=== PATIENT | female | born 1950 | race Caucasian/White ===

== ENCOUNTER 2016-12-31 18:51 | Emergency (ER) | payer OTHER ==
[~2016-12-31] VITALS: Ht 162.6 cm; Wt 63.6 kg
[2016-12-31 19:02] VITALS: Ht 162.6 cm; Wt 63.6 kg
--- NOTE | 2016-12-31 22:17 | ERD ---
ER Documentation Chief Complaint Chief Complaint Abd pain, N/V, x 3 days. HPI The patient is a 66-year-old female, presenting to the ER because of epigastric abdominal pain for the last 3 days, has similar symptoms previously, complains of nausea without vomiting. The pain is worse after eating, she denies fever, chest pain, dyspnea, diarrhea, constipation, dysuria. She was seen at [place] 2 days ago. She does not smoke nor drink Past medical history cholelithiasis Past surgical history: None ROS All systems reviewed and are negative except as per history of present illness. Medications Home Meds Active Scripts Hydrocodone/Acetaminophen ([place] 5-325 Tablet) 1 Each Tablet, 1 TAB PO Q6H Y for PAIN, #7 TAB Prov:ROXI GALEANA MD 01/01/17 Physical Exam Vitals Vital Signs Date Time Temp Pulse Resp B/P Pulse Ox O2 Delivery O2 Flow Rate FiO2 12/31/16 22:25 98.9 69 20 146/74 99 Room Air 12/31/16 19:02 99.0 66 20 146/74 99 Physical Exam Const: No acute distress. Head: Atraumatic. Eyes: Normal Conjunctiva. ENT: Normal External Ears, Nose and Mouth. Neck: Full range of motion. No meningismus. Resp: Clear to auscultation bilaterally. Cardio: Regular rate and rhythm. Abd: Soft, non distended, normal bowel sounds, Mild epigastric tenderness, no right lower quadrant, right upper quadrant, rigidity, rebound or CVA tenderness Skin: No petechiae or rashes. Back: No midline or flank tenderness. Ext: No cyanosis, or edema. Neur: Awake and alert. No focal deficit Psych: Normal Mood and Affect. Result Diagram: 12/31/16224912/31/162249 Results 24 hrs Laboratory Tests Test 12/31/16 22:50 12/31/16 23:05 White Blood Count 10.110^3/ul Red Blood Count 4.5410^6/ul Hemoglobin 13.3g/dl Hematocrit 39.9% Mean Corpuscular Volume 87.9fl Mean Corpuscular Hemoglobin 29.3pg Mean Corpuscular Hemoglobin Concent 33.3g/dl Red Cell Distribution Width 12.9% Platelet Count 38282^3/UL Mean Platelet Volume 9.4fl Neutrophils % 84.8% Lymphocytes % 11.8% Monocytes % 2.7% Eosinophils % 0.0% Basophils % 0.1% Nucleated Red Blood Cells % 0.0/100WBC Neutrophils # 8.510^3/ul Lymphocytes # 1.210^3/ul Monocytes # 0.310^3/ul Eosinophils # 0.010^3/ul Basophils # 0.010^3/ul Nucleated Red Blood Cells # 0.010^3/ul Sodium Level 137mmol/L Potassium Level 3.3mmol/L Chloride Level 98mmol/L Carbon Dioxide Level 26mmol/L Anion Gap 16 Blood Urea Nitrogen 13mg/dl Creatinine 0.60mg/dl Glucose Level 126mg/dl Calcium Level 8.7mg/dl Total Bilirubin 0.4mg/dl Direct Bilirubin 0.00mg/dl Indirect Bilirubin 0.4mg/dl Aspartate Amino Transf (AST/SGOT) 25IU/L Alanine Aminotransferase (ALT/SGPT) 35IU/L Alkaline Phosphatase 117IU/L Total Protein 8.0g/dl Albumin 4.7g/dl Globulin 3.30g/dl Albumin/Globulin Ratio 1.42 Lipase 37U/L Bedside Urine pH (LAB) 7.0 Bedside Urine Protein (LAB) 1+ Bedside Urine Glucose (UA) Negative Bedside Urine Ketones (LAB) 3+ Bedside Urine Blood 2+ Bedside Urine Nitrite (LAB) Negative Bedside Urine Leukocyte Esterase (L Trace Current Medications Medications (Trade) Dose Ordered Sig/Conor Route PRN Reason Start Time Stop Time Status Last Admin Dose Admin Morphine Sulfate (morphine) 2 mg ONCE ONCE IV 12/31/16 23:00 12/31/16 23:01 DC 12/31/16 22:52 Ondansetron HCl (Zofran Inj) 4 mg ONCE STAT IV 12/31/16 22:39 12/31/16 22:40 DC 12/31/16 22:52 Pantoprazole (Protonix Tab) 40 mg ONCE ONCE PO 12/31/16 23:00 12/31/16 23:01 DC 12/31/16 22:52 Potassium Chloride (Klor-Con 20) 20 meq ONCE STAT PO 01/01/17 00:33 01/01/17 00:34 DC Ketorolac Tromethamine (Toradol) 30 mg ONCE STAT IV 01/01/17 00:38 01/01/17 00:39 DC [facility] [place] [address] Radiology Main Line: [phone] DIAGNOSTIC IMAGING REPORT Patient: YAMILETH STACK : 1950 Age: 66 Sex: F MR #: [id number] [facility] #: [id number] DOS: 12/31/16 2252 Ordering MD: ROXI GALEANA MD Location: E/R Room/Bed: PROCEDURE: US Abdomen (right upper quadrant). CLINICAL INDICATION: Pain. TECHNIQUE: Multiple real-time longitudinal and transverse images of the right upper quadrant of the abdomen were acquired utilizing a curved array transducer. Images were reviewed on a high-resolution PACS workstation. COMPARISON: None FINDINGS: The liver is normal in size and echogencity without focal mass. Multiple gallstones are noted within the gallbladder measuring up to 2.4 cm in diameter.. There is no pericholecystic fluid or gallbladder wall thickening. No intra or extrahepatic biliary dilatation is seen. The common bile duct measures 4.6 mm in maximal dimension. Visualized pancreas is unremarkable.. No free fluid is identified. The right kidney measures 13.3 cm in length. Right kidney is normal in size and echogenicity without hydronephrosis, mass or calculus. There is no perinephric fluid collection. IMPRESSION: 1. Cholelithiasis. 2. No biliary ductal dilation or other signs of cholecystitis. rptat;hmvk .Roxi Youssef MD, MD Date Time Electronically viewed and signed by .Roxi Youssef MD, MD on 12/31/2016 23:45 .K/ CC: ROXI GALEANA EKG: Read by emergency physician Rate/Rhythm: Normal Sinus Rhythm 68 beats/min QRS, ST, T-waves: No ST elevation, no T inversion Impression: Normal EKG MEDICAL MAKING DECISION: The patient is a 66-year-old female, presenting with acute pericolic, acute hypokalemia. She was treated with morphine 2 mg IV and Toradol 30 mg IV for pain and Zofran 4 mg IV for nausea, Protonix 40 mg p.o. for epigastric abdominal pain and potassium chloride 20 mEq p.o. for acute hypokalemia with good response The differential diagnoses considered include but are not limited to cholelithiasis, cholecystitis, cystitis, pancreatitis, hepatitis, gastritis, peptic ulcer disease, gastric ulcer, appendicitis, diverticulitis, cholangitis, choledocholithiasis, partial small bowel obstruction. Departure Diagnosis: Primary Impression: Biliary colic Additional Impression: Hypokalemia Condition: Good Comments She was discharged with [place] The patient's blood pressure was elevated (>120/80) but appears stable without evidence of hypertension emergency or urgency. The patient was counseled about the risks of hypertension and urged to pursue outpatient monitoring and therapy within a week with their primary care physician. I discussed the findings with the patient. I advised the patient to follow-up with the primary physician in about 1-2 days for referral to general surgery or follow with Dr. Carrillo for further evaluation for cholecystectomy, sooner if needed and return if any concern. Disclaimer: Inadvertent spelling and grammatical errors are likely due to EHR/ dictation software use and do not reflect on the overall quality of patient care. Also, please note that the electronic time recorded on this note does not necessarily reflect the actual time of the patient encounter. ROXI GALEANA MD Dec 31, 2016 22:17
[2016-12-31 22:25] VITALS: BP 146/74; PULSE 69; RESP 20; TEMP 98.9
[2016-12-31] MEDS ORDERED: ONDANSETRON 4 MG INJ IV STA (22:39)
[2016-12-31] MEDS ORDERED: PANTOPRAZOLE (EC) 40 MG TAB PO ONE (23:00)
[2016-12-31] MEDS ORDERED: morphine 2 MG INJ IV ONE (23:00)
[2016-12-31 23:08] LABS: URINE BLOOD (Dip) POC 2+ (NEGATIVE)
[2016-12-31 23:18] LABS: BASOPHILS % 0.1 % (0.0-2.0); HEMATOCRIT 39.9 % (37.0-47.0); HEMOGLOBIN 13.3 g/dl (12.0-16.0); LYMPHOCYTES # 1.2 10^3/ul (0.8-2.9); LYMPHOCYTES % 11.8 % (15.0-51.0); MEAN CORPUSCULAR HEMOGLOBIN 29.3 pg (29.0-33.0); MEAN CORPUSCULAR HGB CONC 33.3 g/dl (32.0-37.0); MEAN CORPUSCULAR VOLUME 87.9 fl (82.0-101.0); MEAN PLATELET VOLUME 9.4 fl (7.4-10.4); MONOCYTE # 0.3 10^3/ul (0.3-0.9); MONOCYTES % 2.7 % (0.0-11.0); NEUTROPHIL # 8.5 10^3/ul (1.6-7.5); NEUTROPHILS % 84.8 % (39.0-77.0); PLATELET COUNT 300 10^3/UL (140-415); RED BLOOD COUNT 4.54 10^6/ul (4.20-5.40); RED CELL DISTRIBUTION WIDTH 12.9 % (11.5-14.5); WHITE BLOOD COUNT 10.1 10^3/ul (4.8-10.8)
[2016-12-31 23:35] LABS: ALBUMIN 4.7 g/dl (3.3-4.9); ALBUMIN/GLOBULIN RATIO 1.42; BILIRUBIN,INDIRECT 0.4 mg/dl (0-1.1); BILIRUBIN,TOTAL 0.4 mg/dl (0.2-1.3); CALCIUM 8.7 mg/dl (8.4-10.2); CREATININE 0.6 mg/dl (0.44-1.00); POTASSIUM 3.3 mmol/L (3.5-5.1)
--- NOTE | 2016-12-31 23:45 | RADRPT ---
PROCEDURE: US Abdomen (right upper quadrant). CLINICAL INDICATION: Pain. TECHNIQUE: Multiple real-time longitudinal and transverse images of the right upper quadrant of th e abdomen were acquired utilizing a curved array transducer. Images were reviewed on a high-resoluti on PACS workstation. COMPARISON: None FINDINGS: The liver is normal in size and echogencity without focal mass. Multiple gallstones are noted withi n the gallbladder measuring up to 2.4 cm in diameter.. There is no pericholecystic fluid or gallbl adder wall thickening. No intra or extrahepatic biliary dilatation is seen. The common bile duct me asures 4.6 mm in maximal dimension. Visualized pancreas is unremarkable.. No free fluid is identif ied. The right kidney measures 13.3 cm in length. Right kidney is normal in size and echogenicity withou t hydronephrosis, mass or calculus. There is no perinephric fluid collection. IMPRESSION: 1. Cholelithiasis. 2. No biliary ductal dilation or other signs of cholecystitis. rptat;hmvk .Kenyon Youssef MD, Date Time Electronically viewed and signed by .Kenyon Youssef MD, on 12/31/2016 23:45 .K/
[2017-01-01] MEDS ORDERED: POTASSIUM CHLORIDE (SR) 20 MEQ TAB PO STA (00:33)
[2017-01-01] MEDS ORDERED: KETOROLAC 30 MG INJ IV STA (00:38)
[2017-01-01] MEDS ORDERED: HYDR-906 PO (00:42)
[2017-01-01] MEDS ORDERED: TRAM-40 PO (01:33)
== END 2017-01-01 02:01 | disposition home or self-care (01) ==
LOC: E/R 18:51
DX: K80.50 Calculus of bile duct without cholangitis or cholecystitis without obstruction (principal); E87.6 Hypokalemia
CPT/HCPCS: 36415; 76705; 80053; 81003; 83690; 85025; 93005; 96374; 96375; 99285; J1885; J2270; J2405